=== PATIENT | male | born 2000 | race Caucasian/White ===

== ENCOUNTER 2022-10-14 16:37 | Emergency (ER) | payer OTHER, SELFPAY ==
--- NOTE | ~2022-10-14 | XR_ITS ---
EXAM: XR abdomen/kub 1V DATE: 10/14/2022 17:50 HISTORY: abd pain LEFT SIDE . COMPARISON: None available. FINDINGS: Clear lung bases. Normal bowel gas pattern. No organomegaly. 4 and 5 mm round calcificatio ns project over the left pelvis. Regional bones and soft tissues normal for age. IMPRESSION: Left pelvis calcifications may reflect phleboliths or distal ureteral stones. Reviewed, dictated and finalized at location K. ING ROOM INSPECTOR IMPRESSION: Left pelvis calcifications may reflect phleboliths or distal ureter al stones.
--- NOTE | ~2022-10-14 | CT_ITS ---
EXAMINATION: CT abdomen pelvis wo con DATE: 10/14/2022 18:20 INDICATION: left flank pain TECHNIQUE: Computed tomography (CT) of the abdomen and pelvis was performed without intravenous contr ast. Automated exposure control and iterative reconstruction technique were employed. The dose-length product was 287.46 mGy-cm. COMPARISON: X-ray abdomen, same date. FINDINGS: Lower thorax: Unremarkable Liver: Normal. Biliary/Gallbladder: Gallbladder is normal. No bile duct dilation. Pancreas: No mass or duct dilation. Spleen: Normal. Adrenals:No mass. Kidneys: No mass, stone, or hydronephrosis. GI tract: No small or large bowel dilation. Appendix surgically absent. Mesentery/Peritoneum: No ascites, mass, or free air. Retroperitoneum: No mass. Pelvis: Pelvic organs are within normal limits. Soft Tissues: Soft tissues and body wall unremarkable. Bones: No acute osseous finding. IMPRESSION: No acute abdominopelvic process detected. The calcifications noted in the prior radiograph correspond to phleboliths. Specifically, there is no evidence of nephrolithiasis or obstructive uropathy. Reviewed, dictated and finalized at location K. US SUPERVISOR IMPRESSION: No acute abdominopelvic process detected. The calcifications noted in the prior radiograph correspond to phleboliths. Specifically, there is no evidence of ne phrolithiasis or obstructive uropathy.
[2022-10-14 17:05] VITALS: BP 149/79; PULSE 86; RESP 18; TEMP 36.7; O2SAT 100
[2022-10-14 17:36] LABS: Appearance Urine Clear (Clear); Bilirubin Urine Negative (Negative); Blood Urine Negative (Negative); Color Urine Yellow (Yellow); Glucose Urine UA Negative (Negative); Ketones Urine 1+ mg/dL (Negative); Leukocyte Esterase Ur Negative LEU/UL (Negative); Nitrate Urine Negative (Negative); Protein Urine Negative (Negative); Specific Grav Ur 1.015 (1.001-1.035)
[2022-10-14 17:43] LABS: Mucus Urine Rare /lpf; RBC Urine 0-2 /hpf (0-2); WBC Urine 0-3 /hpf
[2022-10-14 17:47] LABS: Add Urine Microscopic? YES
--- NOTE | 2022-10-14 18:37 | ED.ABDPAIN ---
HPI - Abdominal Pain General Chief Complaint: Abdominal Pain Stated Complaint: left flank pain Time Seen by Provider: 10/14/22 17:19 History of Present Illness HPI narrative: 22-year-old male no medical problems presents emergency room for evaluation of sudden onset of left flank pain that radiates into his groin. Patient states he woke up this morning with the discomfort. Patient also endorses nausea. Denies urinary retention or decreased urinary flow. Denies diarrhea or constipation. Denies fevers. No history of kidney stones. Related Data Home Medications Medication Instructions Recorded Confirmed alprazolam 0.5 mg tablet (Xanax) 0.5 mg PO TID PRN anxiety 01/14/20 04/05/22 Allergies Allergy/AdvReac Type Severity Reaction Status Date / Time Penicillins Allergy Unknown rash Verified 10/14/22 17:27 Review of Systems Review of Systems: CONSTITUTIONAL: Denies fever, chills, or sweats. EYES: Denies visual changes, redness, or discharge. ENT: Denies rhinorrhea, congestion, sore throat, or otalgia. CARDIOVASCULAR: Denies chest pain, palpitations, or edema. RESPIRATORY: Denies cough or dyspnea. GASTROINTESTINAL: Reports flank pain, nausea GENITOURINARY: Denies dysuria or hematuria. SKIN: Denies rash or itching. MUSCULOSKELETAL: Denies back pain, joint pain, or myalgia. NEUROLOGIC: Denies headache, numbness, dizziness, or weakness. PSYCHIATRIC: Denies anxiety or depression. COUNT INCLUDES THE [facility] Past Medical History Medical History Anxiety Cellulitis of right earlobe Cough Current moderate episode of major depressive disorder without prior episode Cystic acne FH: HTN (hypertension) Lower respiratory infection Other fatigue Screening for STD (sexually transmitted disease) Sleep disturbances Tobacco abuse Upper respiratory tract infection Family History Family History Grandparent Family history of hypercholesterolemia Hypertension Carcinoma of colon Family history of malignant melanoma Mother Family history of hypercholesterolemia Family history of mental disorder Depression Father Hypertension Social History Social History Smoking status: Current every day smoker Second hand tobacco smoke exposure: No Alcohol intake: current Drinks per week: 3 Substance use: current Substance use type: marijuana Other substance usage details: daily Exam Narrative: GENERAL: Well-appearing, well-nourished, no physical limitations, and in no acute distress. HEAD: Normocephalic, atraumatic. EYES: Conjunctivae normal, PERRLA and EOMI. CHEST: Clear to auscultation. No respiratory distress. No wheezes rales or rhonchi. HEART: Regular rate and rhythm. No murmur heard. Normal peripheral pulses. ABDOMEN: Soft, nontender, nondistended, normal active bowel sounds. BACK: Left CVA tenderness EXTREMITIES: Normal range of motion. No edema. No clubbing or cyanosis SKIN: Warm, dry, no rash. No noted wounds NEURO: No focal deficits. Alert and oriented x3. MAEW. CN's II-XI intact bilaterally, normal gait PSYCH: Cooperative. Normal mood and affect. Course Vital Signs Vital signs: Vital Signs Temperature 36.7 C 10/14/22 17:05 Pulse Rate 86 10/14/22 17:05 Respiratory Rate 18 10/14/22 17:05 Blood Pressure 149/79 H 10/14/22 17:05 Pulse Oximetry 100 10/14/22 17:05 Temperature 36.7 C 10/14/22 17:05 Pulse Rate 86 10/14/22 17:05 Respiratory Rate 18 10/14/22 17:05 Blood Pressure 149/79 H 10/14/22 17:05 Pulse Oximetry 100 10/14/22 17:05 MDM - Abdominal Pain Lab Data Result diagrams: 10/14/22 18:37 10/14/22 18:37 Labs: Lab Results 10/14/22 10/14/22 10/14/22 Range/Units 17:28 18:37 18:37 WBC 7.4 (4.5-10.0) K/mm3 RBC 4.75 (4.6-6.20) M/mm3 Hgb 14.2 (14.0-18.0) g/dL Hct 4
[2022-10-14] MEDS: ONDANSETRON INJ 4 MG/2 ML VIAL IV PUSH (18:38)
[2022-10-14] MEDS: KETOROLAC 30 MG/ML VIAL (*BKC) IV PUSH (18:38)
[2022-10-14] MEDS: SODIUM CHLORIDE 0.9% IV 1,000 ML 999 ML IV CONT (18:38)
[2022-10-14 18:45] LABS: Basophils Percent Auto 0.3 % (0.2-1.2); Eosinophils Absolute Auto 0.1 K/mm3 (0-0.3); Eosinophils Percent Auto 1.3 % (0-4.4); Hematocrit 40.4 % (42.0-52.0); Hemoglobin 14.2 g/dL (14.0-18.0); Immature Granulocyte Absolute 0.01 K/mm3 (0.00-0.031); Immature Granulocyte Percent A 0.1 % (0-0.5); Lymphocytes Absolute Auto 2.06 K/mm3 (0.9-3.2); Lymphocytes Percent Auto 27.7 % (18.3-44.2); Mean Corpuscular HGB Conc 35.1 g/dl (32-36); Mean Corpuscular Hemoglobin 29.9 pg (26-34); Mean Corpuscular Volume 85.1 fl (80-100); Mean Platelet Volume 9.5 fl (7.4-10.4); Monocytes Percent Auto 12.9 % (2.6-8.5); Neutrophils Absolute Auto 4.3 K/mm3 (1.3-6.7); Neutrophils Percent Auto 57.7 % (45.5-73.1); Platelet Count Result 186 k/mm3 (150-375); Red Blood Count 4.75 M/mm3 (4.6-6.20); Red Cell Distribution Width 11.8 % (11.5-14.5); White Blood Count 7.4 K/mm3 (4.5-10.0)
[2022-10-14 18:55] VITALS: BP 140/82; PULSE 89; RESP 16; O2SAT 99
[2022-10-14 18:57] LABS: Alanine Aminotransferase 35 U/L (6-50); Albumin Level 4.6 g/dL (3.5-5.1); Alkaline Phosphatase 96 U/L (38-126); Anion Gap 10 mmol/L (8-16); Aspartate Amino Transferase 37 U/L (17-59); Bilirubin,Total 0.8 mg/dL (0.2-1.3); Blood Urea Nitrogen 9 mg/dL (9-20); Calcium 8.8 mg/dL (8.4-10.2); Carbon Dioxide 28 mmol/L (22-30); Chloride 104 mmol/L (98-107); Estimated CRCL calculation 136 ml/min; Estimated Glomerular Filt Rate > 60; Glucose 93 mg/dL (65-110); Potassium 3.2 mmol/L (3.4-5.0); Sodium 142 mmol/L (137-145)
== END 2022-10-14 18:55 | disposition home or self-care (01) ==
PROVIDERS: Emergency Provider Nurse Practitioner Family; PCP Family Medicine
DX: R10.32 Left lower quadrant pain (principal); F41.9 Anxiety disorder, unspecified; F17.200 Nicotine dependence, unspecified, uncomplicated; R93.5 Abnormal findings on diagnostic imaging of other abdominal regions, including retroperitoneum
CPT/HCPCS: 36415; 74018; 74176; 80053; 81001; 85025; 96361; 96374; 96375; 99284; J1885; J2405; J7030

== ENCOUNTER 2022-10-30 08:22 | Outpatient (CLI) | payer OTHER, SELFPAY ==
--- NOTE | ~2022-10-30 | CT_ITS ---
EXAMINATION: CT abdomen pelvis w con DATE: 10/30/2022 08:44 INDICATION: Left lower quadrant pain, groin pain TECHNIQUE: Computed tomography (CT) of the abdomen and pelvis was performed with 100 CC Omnipaque 350 intravenous contrast. Automated exposure control and iterative reconstruction technique were employe d. Exam dose: 724.42 mGy-cm total exam DLP. COMPARISON: 10/14/2022 CT abdomen pelvis FINDINGS: Lung bases are clear. Normal heart size. No pericardial or pleural effusion. Several very small hypoattenuating lesions of the liver are noted, likely small cysts or benign hamar bridget. The gallbladder is unremarkable. No bile duct or pancreatic duct dilatation. No pancreatic mas s lesion or calcification. Normal splenic size. Normal morphology of the adrenal glands. No renal mass lesion or urinary tract calculus or hydroureteronephrosis. Normal caliber of the abdominal aorta. No intraperitoneal or retroperitoneal or pelvic mass lesion or adenopathy or ascites. The urinary bladder, prostate gland and seminal vesicles are unremarkable. No bowel obstruction, bowel wall thickening, pneumatosis or intraperitoneal free air. Status post ethel endectomy. Small fat-containing umbilical hernia. No inguinal hernia is detected. Included skeletal structures are unremarkable. IMPRESSION: Status post appendectomy Several very small hypoattenuating lesions of the liver, likely small cysts or benign hamartomas No evidence of inguinal hernia Reviewed, dictated and finalized at Location A. Reviewed, dictated and finalized at location B. ANALYSIS WELL LOGGING CAPTAIN
== END 2022-10-30 08:23 | disposition home or self-care (01) ==
PROVIDERS: PCP Family Medicine; Visit Provider Physician Assistant Medical
DX: R10.32 Left lower quadrant pain (principal); K76.9 Liver disease, unspecified
CPT/HCPCS: 74177; Q9967

== ENCOUNTER 2022-12-03 15:09 | Outpatient (CLI) | payer OTHER, SELFPAY ==
--- NOTE | ~2022-12-03 | XR_ITS ---
EXAMINATION: XR knee LT 3V DATE: 12/03/2022 15:38 INDICATION: Left knee pain. Twisting injury. TECHNIQUE: 3 views of left knee were obtained. COMPARISON: None. FINDINGS: Bone alignment is normal. No fracture. Joint spaces are well maintained. There is a small k nee joint effusion. IMPRESSION: 1. Small left knee joint effusion. Reviewed, dictated and finalized at location A. E SALES LEADER
== END 2022-12-03 15:10 | disposition home or self-care (01) ==
PROVIDERS: PCP Family Medicine; Visit Provider Physician Assistant
DX: M25.462 Effusion, left knee (principal)
CPT/HCPCS: 73562

== ENCOUNTER → 2023-01-17 13:36 | Outpatient (CLI) | payer OTHER, SELFPAY ==
--- NOTE | ~2023-01-17 | MR_ITS ---
EXAMINATION: MR knee LT wo con DATE: 01/17/2023 14:26 INDICATION: Left knee pain TECHNIQUE: Magnetic resonance imaging (MRI) of the left knee was performed without intravenous contra st. Sequences included coronal PD-weighted FSE, coronal PD-weighted FS FSE, sagittal T2-weighted FSE , sagittal PD-weighted FS FSE and axial PD weighted fat saturated FSE. COMPARISON: Radiograph dated 12/24/2022 FINDINGS: Medial compartment: Medial meniscus is normal. Articular cartilage is normal. Lateral compartment: Lateral meniscus is normal. Articular cartilage is normal. Patellofemoral compartment: Articular cartilage is normal. Ligaments and tendons: Posterior cruciate ligament is normal. Complete tear of the anterior cruciate ligament. The medial co llateral ligament and fibular collateral ligament complex are normal. The extensor mechanism is tony l. The visualized medial and lateral hamstring tendons as well as the iliotibial band are normal. Fluid: Small left knee joint effusion. No loose osteochondral bodies identified. Small Burger's cyst. Osseous/other: Slight anterior subluxation of the tibia with respect to the femoral condyles consistent with anterio r cruciate ligament tear. Likely reactive marrow edema primarily in the distal femur which centers ar ound the footplate of the anterior cruciate ligament. Additional mild marrow edema at the posterolate ral aspect lateral tibial plateau centered along the white appears to be small feeding vessels arisin g along the anterior margin of the proximal tibiofibular articulation. No fracture or pathologic valery ow replacing process. IMPRESSION: 1. Complete tear of the anterior cruciate ligament. Normal menisci and cartilage. Reviewed, dictated and finalized at location A. ANIC INSULATOR IMPRESSION: 1. Complete tear of the anterior cruciate ligament. Normal menisci and cartilag e.
== END ==
PROVIDERS: PCP Family Medicine; Visit Provider Nurse Practitioner Family
DX: S83.512D Sprain of anterior cruciate ligament of left knee, subsequent encounter (principal); X58.XXXD Exposure to other specified factors, subsequent encounter
CPT/HCPCS: 73721

== ENCOUNTER 2023-05-23 01:09 | Day surgery (SDC) | payer OTHER, SELFPAY ==
--- NOTE | 2023-05-16 13:52 | PC.NURSE ---
Report to the Outpatient Waiting Room, entrance under the green pavilion located off [facility], at time _0600__ on date _05/23/23__. Planned Procedure Time: _0730__. Time changes happen often and if your time is changed the preop area will call you the afternoon before. - You and your visitor will be asked to self-screen and do not enter if you have any COVID symptoms. - A mask is optional within the hospital at this time. Patients may have clear liquids (water, carbonated beverages, clear teas, apple juice) until 3 hours prior to surgery with a maximum of 20 ounces. - No food from midnight until time of surgery Take the following medications with a SIP of water the morning of surgery: _Alaprazolam___ DO NOT STOP ANY OF YOUR OTHER PRESCRIPTION MEDICATIONS PRIOR TO SURGERY ?EXCEPT THE FOLLOWING Medications to discontinue per physician vitamins or supplements 3 days prior___ Date to take last dose Please no make-up, nail faroese, hairspray, perfume, deodorant, or body powder the day of surgery. No jewelry (including any body piercings) or valuables the day of surgery, leave them at home. Please take a shower or bath the night before, or the morning of, surgery with an antibacterial soap. Wear comfortable, loose fitting clothing. Children are encouraged to wear pajamas. - Jewelry must be removed prior to entering the operating room. Rings and piercings that are not removed may be cut off. - The hospital will not accept responsibility for valuables. - Please leave all valuables, including medications, at home the day of surgery. If you are going home after surgery, a licensed driver lifter of sanitation truck must drive you home. - NO public transportation without another adult if you receive anesthesia. - We recommend that an adult stay with you for 24 hours following discharge. - We also recommend that you do not drive, make important decision, drink alcoholic beverages, or take any drugs that were not prescribed by your health care provider for at least 24 hours after your discharge time. For Pediatric surgeries, we recommend two adults accompany the child home. Follow any additional instructions given to you from your surgeon. If you or anyone in your household have experienced Covid symptoms in the past week, please notify your surgeon or the nurse liaison at the phone number below for possible testing. Telephone instructions given to _patient__and asked if any additional questions and then verbalized understanding. Patient advised to call surgeon office or pre surgery nurse liaison [phone] if any additional questions.
[2023-05-16 14:00] VITALS: BMI 29.9
[2023-05-23] VITALS (7 sets, daily range): BP systolic 124–161; BP diastolic 63–97; PULSE 73–100; RESP 12–18; TEMP 36.7; O2SAT 96–100
[2023-05-23] MEDS: ACETAMINOPHEN 500 MG TABLET 1000 MG PO (06:54)
[2023-05-23] MEDS: KETOROLAC 15 MG/ML VIAL (*BKC) IV PUSH (06:57)
--- NOTE | 2023-05-23 07:04 | WPDANESEPPF ---
Anes - Initial Pre Proc Eval Procedure: Operation Date: 05/23/23 07:30 Proposed Procedures p Left Knee Anterior Cruciate Ligament Reconstruction - Anthony Perez MD Date/Time: 05/23/23 07:04 Surgeon: Anthony Perez MD Pre Op Diagnosis: left knee acl tear Patient Data Age: 22 Gender: M Height: 1.83 m Weight: 102.9 kg Last Vital Signs Temp 36.7 C 05/23/23 07:02 Pulse 90 05/23/23 07:02 Resp 16 05/23/23 07:02 BP 161/81 H 05/23/23 07:02 Pulse Ox 100 05/23/23 07:02 O2 Del Method Room Air 05/23/23 07:02 Allergies Allergy/AdvReac Type Severity Reaction Status Date / Time Penicillins Allergy Unknown rash Verified 05/23/23 06:15 Home Medications Medication Instructions Recorded Confirmed Type alprazolam 0.5 mg tablet (Xanax) 0.5 mg PO TID PRN anxiety 01/14/20 05/16/23 History amitriptyline 50 mg tablet 50 mg PO HS 05/16/23 05/16/23 History Patient hx anesthesia problems: post op nausea/vomiting Family hx anesthesia problems: none Results Review: All pre-operative results and documents have been reviewed as part of the pre-operative evaluation. [facility] Past Medical History Medical History ACL tear Anxiety Cellulitis of right earlobe Cough Current moderate episode of major depressive disorder without prior episode Cystic acne FH: HTN (hypertension) History of MRSA infection Left groin pain Left knee injury Left knee pain Lower respiratory infection Other fatigue Screening for STD (sexually transmitted disease) Sleep disturbances Tobacco abuse Upper respiratory tract infection Surgical History Surgical History History of appendectomy Family History Family History Grandparent Family history of hypercholesterolemia Hypertension Carcinoma of colon Family history of malignant melanoma Mother Family history of hypercholesterolemia Family history of mental disorder Depression Father Hypertension Other Thyroid cancer cousin Social History Social History Smoking packs per day: 0.5 Smoking cigarettes per day: 10.0 Years smoked: 4 Smoking pack-years: 2.00 Smoking status: Former smoker Tobacco type: cigarettes Second hand tobacco smoke exposure: No Alcohol intake: current Drinks per week: 2 Substance use: never Substance use type: does not use Other substance usage details: daily Last use: 04/15/22 Lack of Transportation: No Lack of Food: Never True Current Housing: I Have Housing Concerned About Future Housing: No Difficulty Paying Gas/Electric Bills: No Difficulty Paying for Meds: No Currently Unemployed: No Education: High School Diploma/GED Difficulty w/ Childcare or Family Care: No Living arrangements: with family Spiritual care concerns: No Anes - Eval Final PreProcedure Day of Procedure 05/23/23 07:04 Patient weight: overweight Heart: regular rate and rhythm Lungs: clear to auscultation Airway: Mallampati scale class II Neurological: alert and oriented Last oral intake: >/= 8 hours ASA classification: II Emergent: no Anesthetic plan: proceed Anesthesia type and monitoring: general LMA and standard monitoring Results Review: All pre-operative results and documents have been reviewed as part of the pre-operative evaluation. Informed Consent: The patient's anesthetic plan and its attendant risks and benefits were discussed with the patient/family/POA. Questions were solicited and answers provided to the satisfaction of the patient/family/POA.
--- NOTE | 2023-05-23 07:08 | WPDHPUPDATE1 ---
History and Physical Update Update Date/Time: 05/23/23 07:08 History and Physical has been reviewed, including an updated exam of the patient. There are NO changes in the patient's condition. Risks, benefits, and alternatives have been discussed and questions answered. Patient agrees to proceed with procedure.
[2023-05-23] MEDS: SCOPOLAMINE 1.5 MG PATCH TRANSDERM (07:12)
[2023-05-23] MEDS: LACTATED RINGERS 1,000 ML 30 ML IV CONT ×2 (07:12→10:49)
[2023-05-23] MEDS: ceFAZolin 2 GM/D5W 50 ML 2 GM/50 ML BAG IVPB (07:30)
[2023-05-23] MEDS: LIDO 1%/EPINEPHRINE 1:100,000 20 ML VIAL 30 ML INFILTRATE (10:24)
[2023-05-23] MEDS: LIDOCAINE HCL 1% LOCAL INJ 20 ML VIAL 10 ML INFILTRATE (10:25)
--- NOTE | 2023-05-23 10:47 | W.PM.PROC2 ---
Procedure Note - Detailed Date of Procedure 05/23/23 Pre-op Diagnosis left knee acl tear Post-op Diagnosis Same Procedure Performed Left knee arthroscopic assisted anterior cruciate ligament reconstruction. 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 MRI shows anterior cruciate ligament tear. Patient has instability with activity and pain. Has been through physical therapy. Presents now for ACL reconstruction. Discussion regarding choice of allograft versus autograft. Patient has opted for allograft replacement. Findings Complete tear of the anterior cruciate ligament from the femoral side. PCL intact. The medial / lateral compartments intact with intact menisci. Minimal degenerative changes. Patellofemoral articulation without significant degeneration. Description of Procedure Informed consent given by patient. Operative extremity marked in preoperative holding area. Patient received intravenous antibiotics. Patient brought to operating room and underwent general anesthetic by anesthesia team. Positioned supine on operating room table. Left leg placed into a posterior thigh leg rosenthal. Foot of the table dropped to 90? and right leg padded out of the field. Time-out performed confirming patient, site of surgery and plan. Left knee prepped and draped in usual sterile surgical fashion using ChloraPrep skin solution. Standard arthroscopic portals made by using a 11 blade knife for the anterior lateral portal 1st. Capsule penetrated bluntly. Camera and inflow started. The operative findings noted. Intra-articular visualization used to position the anterior medial portal using 22 gauge spinal needle. A 11 blade knife used for the skin and blunt penetration of the capsule. 4.7 millimeter arthroscopic shaver introduced and Resection of the remaining portion of the anterior cruciate ligament performed. Resection of the anterior fat pad performed for visualization. Femoral notchplasty then performed with 5.0 mm corrie and the shaver. Bleeding points coagulated with the Wand. Anterior cruciate ligament reconstruction then performed. Allograft hamstring tendon opened and prepared on table, this is a quadrupled soft tissue hamstring tendon graft. The fixation suture button applied to the femoral side. Fixation suture applied to the tibial side. Tensioning graft was then performed at a tension of 15. Femoral Tunnel was then drilled with a 10 mm inside to drill placed at the proper position on the medial wall of the lateral femoral condyle. 35 mm socket was prepared. Debris was suctioned. Suture was then passed through this into the knee joint. Tibial side was then drilled at 65? from outside in after placing the guide pin. Approximately 55 mm tibial tunnel prepared. Tibial tunnel also 10 mm diameter. Debris was suctioned. Graft was then plastic with the passing suture from the femur through the tibial hole into the joint and brought out into the femoral tunnel. Tightening sutures were used on the femoral side and tibial side to Center graft in the knee joint. With knee in full extension the internal brace which had been attached to the femoral fixation button was brought out through the tibial tunnel and fastened to the tibia with a 5.0 mm SwiveLock anchor. Knee was taken through full range of motion no impingement was noted. This also allowed the anterior cruciate ligament graft to cycle and position. Tibial side was then fastened with a 14 mm button. Final tensioning of the femoral and tibial side was then performed with the knee in approximately 35? flexion and posterior directed force on the proximal tibia. Knee was once again taken through full range of motion and no impingement was noted. Knee inspected, no loose pieces noted. 1 liter of irrigant infused and suction out. Arthroscopic cannulas removed. Skin closed with 4 nylon interrupted suture. Local anes
[2023-05-23] MEDS: fentaNYL CITRATE INJ (*CRX) 100 MCG/2 ML VIAL 25 MCG IV PUSH ×3 (10:55→11:20)
[2023-05-23] MEDS: oxyCODONE HCL (*CRX) 5 MG TAB IR PO (11:47)
== END 2023-05-23 12:10 | disposition home or self-care (01) ==
PROVIDERS: PCP Family Medicine; Visit Provider Orthopaedic Surgery
PROC: (CPT 29888; principal; 2023-05-23 07:30)
DX: S83.512A Sprain of anterior cruciate ligament of left knee, initial encounter (principal); X50.0XXA Overexertion from strenuous movement or load, initial encounter; F17.290 Nicotine dependence, other tobacco product, uncomplicated; F12.90 Cannabis use, unspecified, uncomplicated; F41.9 Anxiety disorder, unspecified
CPT/HCPCS: 29888; A9270; C1713; J0690; J1100; J1885; J2250; J2405; J2704; J3010; J7120; L1830

== ENCOUNTER 2023-09-06 12:24 | Emergency (ER) | payer OTHER, SELFPAY ==
--- NOTE | ~2023-09-06 | XR_ITS ---
EXAMINATION: [id number] INDICATION: Left lateral rib pain TECHNIQUE: A frontal view of the chest and 3 views of the left ribs were obtained. COMPARISON: None. FINDINGS: The lungs are free of acute opacities. No pleural effusion or pneumothorax. The cardiomedia stinal silhouette is normal. No displaced rib fracture is identified. IMPRESSION: 1. No acute cardiopulmonary abnormality or evidence of displaced rib fracture. Reviewed, dictated and finalized at location B.
[2023-09-06 12:33] VITALS: BP 140/86; PULSE 82; RESP 16; TEMP 36.6; O2SAT 98
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
== END 2023-09-06 13:17 | disposition home or self-care (01) ==
PROVIDERS: Emergency Provider Nurse Practitioner Family; PCP Family Medicine
DX: R07.81 Pleurodynia (principal); I10 Essential (primary) hypertension; Z79.899 Other long term (current) drug therapy; Z87.891 Personal history of nicotine dependence; W50.0XXA Accidental hit or strike by another person, initial encounter
CPT/HCPCS: 71101; 99213; G0463

== ENCOUNTER 2024-09-25 10:08 | Outpatient (CLI) | payer OTHER, SELFPAY ==
--- NOTE | ~2024-09-25 | MR_ITS ---
EXAMINATION: MR knee LT wo con DATE: 09/25/2024 10:46 INDICATION: Left knee pain. TECHNIQUE: Magnetic resonance imaging (MRI) of the left knee was performed without intravenous contra st. Sequences included axial PD-weighted FS FSE, coronal PD-weighted FSE and PD-weighted FS FSE, sagi ttal PD-weighted FSE, and sagittal T2-weighted FS FSE. COMPARISON: Left knee MRI 01/17/2023, radiographs 09/09/2024 FINDINGS: Medial compartment: There is a tear of body and posterior horn of medial meniscus with torn bucket-handle component in th e intercondylar notch. There is shallow partial-thickness cartilage loss of tibial condyle posteriorl y. The femoral cartilage is normal. Lateral compartment: The lateral meniscus is normal. The lateral compartment cartilage is normal. Patellofemoral compartment: The patellar cartilage is normal. The trochlear cartilage is normal. Ligaments and tendons: There are changes of anterior fusion ligament reconstruction. There is abnormal orientation of the gr aft, which is less steep than Blum[place]at line. There is fluid in the tibial tunnel. The posterior cru ciate ligament is normal. There is trace fluid along the medial collateral ligament. The lateral aurelio ateral ligament complex is normal. Patellar tendon is normal. Fluid: There is a small knee joint effusion. There is a moderate-sized Burger's cyst. IMPRESSION: 1. Tear of the anterior cruciate ligament graft. 2. Torn bucket-handle tear of medial meniscus. 3. Mild chondrosis of medial compartment. 4. Small knee joint effusion. 5. Moderate-sized Burger's cyst. Reviewed, dictated and finalized at location B.
== END 2024-09-25 10:09 | disposition home or self-care (01) ==
PROVIDERS: PCP Family Medicine; Visit Provider Orthopaedic Surgery
DX: S83.512D Sprain of anterior cruciate ligament of left knee, subsequent encounter (principal); X58.XXXD Exposure to other specified factors, subsequent encounter; M25.462 Effusion, left knee; M71.22 Synovial cyst of popliteal space [Baker], left knee
CPT/HCPCS: 73721

== ENCOUNTER 2024-11-02 01:58 | Day surgery (SDC) | payer BC, SELFPAY ==
[2024-10-02 14:19] VITALS: BMI 29.2
--- NOTE | 2024-10-02 14:24 | PC.NURSE ---
Report to the Outpatient Waiting Room, entrance under the green pavilion located off [facility], at time _0830_ on date _[id number]_. Planned Procedure Time: _1030_.? Time changes happen often and if your time is changed the preop area will call you the afternoon before. - You and your visitor will be asked to self-screen and do not enter if you have any COVID symptoms. Please call surgeon if you need to reschedule. - A mask is optional within the hospital at this time. Patients may have clear liquids (water, carbonated beverages, clear teas, apple juice) until 3 hours prior to surgery with a maximum of 20 ounces. - No food from midnight until time of surgery and no smoking Take only the following medications with a SIP of water on the morning of surgery: __If needed may take Alprazolam or Tylenol_ DO NOT STOP ANY OF YOUR OTHER PRESCRIPTION MEDICATIONS PRIOR TO SURGERY EXCEPT THE FOLLOWING Medications to discontinue per physician ___None____ Please no make-up, nail albanian, hairspray, perfume, deodorant, or body powder the day of surgery.? No jewelry (including any body piercings) or valuables the day of surgery, leave them at home.? Please take a shower or bath the night before, or the morning of, surgery with an antibacterial soap.? Wear comfortable, loose fitting clothing.? - Jewelry must be removed prior to entering the operating room.? Rings and piercings that are not removed may be cut off. - The hospital will not accept responsibility for valuables.? - Please leave all valuables, including medications, at home the day of surgery. If you are going home after surgery, a licensed home delivery driver must drive you home.? - NO public transportation without another adult if you receive anesthesia. - We recommend that an adult stay with you for 24 hours following discharge. - We also recommend that you do not drive, make important decision, drink alcoholic beverages, or take any drugs that were not prescribed by your health care provider for at least 24 hours after your discharge time. Follow any additional instructions given to you from your surgeon. Telephone instructions given to __El__and asked if any additional questions and then verbalized understanding. Patient advised to call surgeon office or pre surgery nurse liaison [phone] if any additional questions.
--- NOTE | 2024-10-20 12:34 | PC.NURSE ---
Spoke with El informing that surgery is now on 11-02-2024 at 730am and he needs to be here at 6am. No other changes to instructions.
--- NOTE | 2024-10-28 14:28 | PM.IMHP ---
H&P: HPI History of Present Illness Date/Time: 10/28/24 14:28 Chief Complaint: Left knee pain Narrative: 23 year old male presents for follow up of left knee ACL reconstruction, DOS: 05/23/23 (1yr, 6mo). Patient is experiencing posterior/patella pain with swelling and limited/painful ROM. Patient is currently taking Tylenol and Ibuprofen for pain, as well as using a brace and RICE. He had an MRI completed on 09/25/2024. Involved knee: left Onset: sudden Location of pain: lateral and posterior Pain scale (0-10): 5 Character: stabbing and throbbing Timing of pain: constant Exacerbated by: direct pressure, weight bearing, squatting, stairs, running, prolonged activity and walking up stairs Relieved by: Tylenol and rest Associated symptoms: Reports swelling and stiffness History of prior knee injury: Yes Prior treatment: surgery Procedure: Left Knee ACL Reconstruction Date: 05/23/23 Review of Systems Constitutional: Constitutional: Denies fever(s) Eyes: Eyes: Denies blurry vision ENT: Reports Normal hearing present Cardiovascular: Cardiovascular: Denies chest pain and Denies dyspnea Respiratory: Respiratory: Denies dyspnea and Denies wheezing Gastrointestinal: Gastrointestinal: Denies abdominal pain Genitourinary: Genitourinary: Denies urinary urgency Musculoskeletal: Musculoskeletal: Reports as per HPI and Denies numbness Integumentary/Breasts: Skin/Breast: Denies changing lesions and Denies sores Neurologic: Reports Normal hearing present, Denies behavioral changes, Denies confusion, Denies numbness and Denies convulsions Psychiatric: Psychiatric: Denies behavioral changes, Denies confusion and Denies hallucinations Endocrine: Endocrine: Denies heat intolerance Hematologic/Lymphatic: Hematologic/Lymphatic: Denies easy bleeding Allergic/Immunologic: Allergic/Immunologic: Denies wheezing PMFSH Past Medical History Medical History ACL tear Acute medial meniscus tear of left knee Anxiety Cellulitis of right earlobe Cough Current moderate episode of major depressive disorder without prior episode Cystic acne FH: HTN (hypertension) History of MRSA infection Left groin pain Left knee injury Left knee pain Lower respiratory infection Other fatigue Screening for STD (sexually transmitted disease) Sleep disturbances Tobacco abuse Upper respiratory tract infection Surgical History Surgical History History of appendectomy Family History Family History Grandparent Family history of hypercholesterolemia Hypertension Carcinoma of colon Family history of malignant melanoma Mother Family history of hypercholesterolemia Family history of mental disorder Depression Father Hypertension Other Thyroid cancer cousin Social History Social History Smoking packs per day: 0.5 Smoking cigarettes per day: 10.0 Years smoked: 5 Smoking pack-years: 2.50 Smoking status: Former smoker Tobacco type: cigarettes Second hand tobacco smoke exposure: No Smoking end date: 09/18/24 Alcohol intake: current Drinks per week: 2 Substance use: never Substance use type: does not use Other substance usage details: daily Last use: 04/15/22 Lack of Transportation: No Lack of Food: Never True Current Housing: I Have Housing Concerned About Future Housing: No Difficulty Paying Gas/Electric Bills: No Difficulty Paying for Meds: No Currently Unemployed: No Education: High School Diploma/GED Difficulty w/ Childcare or Family Care: No Living arrangements: with family Spiritual care concerns: No Meds Home Medications and Allergies Home Medications Medication Instructions Recorded Confirmed Type alprazolam 0.5 mg tablet (Xanax) 0.5 mg PO TID PRN anxiety 01/14/20 10/20/24 History amitriptyline 50 mg tablet 50 mg PO HS #90 tabs 03/26/24 10/20/24 Rx acetaminophen 500 mg tablet 1,000 mg PO Q6H PRN Pain 10/02/24 10/20/24 History Allergies Allergy/AdvReac Type Severity Reaction Status Date / Time Penicillins Allergy Unknown rash Verified 10/20/24 12:33 Exam Const: General: healthy appearing; No in distress or confusion Orientation/consciousness: oriented to person, oriented to place, oriented to time and No confusion HENMT: Head: normal to inspection, normocephalic and atraumatic Eyes: Conjunctivae: conjunctivae normal Sclera: sclerae normal Neck: Neck: supple and nontender Resp: Effort & Inspection: normal respiratory effort and no audible wheezes Cardio: Rate: regular rate Rhythm: regular rhythm Skin: General skin exam: no rashes or lesions noted Neuro: General: oriented to person, oriented to place, oriented to time and No confusion Extrem: Right upper extremity: normal to inspection Left upper extremity: normal to inspection Right lower extremity: hip/thigh Details: normal ROM; no tenderness, knee Details: normal to inspection, normal ROM, knee ligament exam normal Details: anterior drawer test normal, posterior drawer test normal, valgus stress test normal, varus stress test normal and Per?s test normal and Donnie's Test Details: negative medially and laterally; no tenderness and no swelling and foot Details: normal capillary refill, toes with normal ROM, vascular exam Details: dorsalis pedis pulse present and motor-sensory exam Details: light-touch normal; no tenderness; no edema Left lower extremity: normal to inspection, normal capillary refill, hip/thigh Details: normal ROM; no tenderness, knee Details: tenderness Location: of the patella, of the medial joint line and of the infrapatellar area, swelling Location: of the infrapatellar area (mild), abnormal ROM (active extension -10, flexion 110), knee ligament exam normal Details: anterior drawer test normal, posterior drawer test normal, valgus stress test normal, varus stress test normal and Per's test normal, Donnie's Test Details: negative laterally and positive medially and crepitus Location: at the patella (mild) and foot Details: toes with normal ROM, vascular exam Details: dorsalis pedis pulse present and normal capillary refill and motor-sensory exam light-touch normal; no tenderness Psych: Affect: normal affect Assessment and Plan Assessment and plan (1) Acute medial meniscus tear of left knee: Qualifiers: Encounter type: subsequent encounter Qualified Code(s): S83.242D - Other tear of medial meniscus, current injury, left knee, subsequent encounter Code(s): S83.242A - Other tear of medial meniscus, current injury, left knee, initial encounter Status: Acute Assessment and Plan: MRI done in the interim for the left knee. Patient reports no real change in condition. Still with pain over the anterior medial aspect of the knee. Popping and catching noted. He does not note any giving out. MRI reviewed which shows posterior horn medial meniscus tear with displacement of the portion of the tear into the intercondylar notch. Status post ACL graft placement with postsurgical changes but ACL Questionably appears intact. Reviewed with patient. Treatment options reviewed. Discussed nonoperative and operative treatment options with the patient. Risks and benefits of each as well as alternatives were reviewed. All of the patient's questions were answered. The risks of surgery reviewed including but not limited to: Neurovascular damage, wound complication, infection, blood clot, pulmonary embolus, stroke, myocardial infarction, and anesthetic risks up to and including . Continued pain and possible dysfunction were explained. Specific risks of the procedure including later recurrence of deformity. No guarantees were offered. If hardware used, discussed risk of failure/ breakage and possible need for removal. If complications occur, the patient understands the need for further treatment, possible further surgery. Patient verbalizes understanding and wishes to proceed. PLAN: Left knee arthroscopy with debridement, partial meniscectomy, synovectomy, chondroplasty, possible anterior cruciate ligament reconstruction with allograft. (2) Left knee injury: Qualifiers: Encounter type: subsequent encounter Qualified Code(s): S89.92XD - Unspecified injury of left lower leg, subsequent encounter Code(s): S89.92XA - Unspecified injury of left lower leg, initial encounter Status: Acute (3) Left knee pain: Qualifiers: Chronicity: acute Qualified Code(s): M25.562 - Pain in left knee Code(s): M25.562 - Pain in left knee Status: Acute (4) ACL tear: Qualifiers: Encounter type: subsequent encounter Laterality: left Qualified Code(s): S83.512D - Sprain of anterior cruciate ligament of left knee, subsequent encounter Code(s): S83.519A - Sprain of anterior cruciate ligament of unspecified knee, initial encounter Status: Acute Assessment and Plan: MRI shows some degeneration of the ACL graft. Good stability on exam and no evidence or giving out of the knee with activity. Discussed with patient evaluation at the time of arthroscopy for the medial meniscus. If graft is injured, retorn or insufficient will proceed with ACL reconstruction with new graft. Discussed with patient. Risks, benefits and alternatives to surgery discussed in detail. Questions answered and he would like to proceed.
[2024-11-02] VITALS (8 sets, daily range): BP systolic 94–141; BP diastolic 50–92; PULSE 73–87; RESP 10–18; TEMP 36–36.4; O2SAT 99–100
--- NOTE | 2024-11-02 06:50 | P.PNAN_ITS ---
Anes - Initial Pre Proc Eval Procedure: Operation Date: 11/02/24 07:30 Proposed Procedures p Left Knee Arthroscopy, Debride Meniscus, Synovectomy, Chondroplasty, Proceed As Indicated - Anthony Perez MD s Possible Left Anterior Cruciate Ligament Reconstruction - Anthony Perez MD Date/Time: 11/02/24 06:50 Surgeon: Anthony Perez MD Pre Op Diagnosis: left knee apin, medial meniscal tear, chondromylas Patient Data Age: 24 Gender: M Height: 1.83 m Weight: 97.7 kg Allergies Allergy/AdvReac Type Severity Reaction Status Date / Time Penicillins Allergy Unknown rash Verified 10/20/24 12:33 Home Medications Medication Instructions Recorded Confirmed Type alprazolam 0.5 mg tablet (Xanax) 0.5 mg PO TID PRN anxiety 01/14/20 10/20/24 History amitriptyline 50 mg tablet 50 mg PO HS #90 tabs 03/26/24 10/20/24 Rx acetaminophen 500 mg tablet 1,000 mg PO Q6H PRN Pain 10/02/24 10/20/24 History Patient hx anesthesia problems: none Family hx anesthesia problems: none Results Review: All pre-operative results and documents have been reviewed as part of the pre- operative evaluation. [facility] Past Medical History Medical History ACL tear Acute medial meniscus tear of left knee Anxiety Cellulitis of right earlobe Cough Current moderate episode of major depressive disorder without prior episode Cystic acne FH: HTN (hypertension) History of MRSA infection Left groin pain Left knee injury Left knee pain Lower respiratory infection Other fatigue Screening for STD (sexually transmitted disease) Sleep disturbances Tobacco abuse Upper respiratory tract infection Surgical History Surgical History History of appendectomy Family History Family History Grandparent Family history of hypercholesterolemia Hypertension Carcinoma of colon Family history of malignant melanoma Mother Family history of hypercholesterolemia Family history of mental disorder Depression Father Hypertension Other Thyroid cancer cousin Social History Social History Smoking packs per day: 0.5 Smoking cigarettes per day: 10.0 Years smoked: 5 Smoking pack-years: 2.50 Smoking status: Former smoker Tobacco type: cigarettes Second hand tobacco smoke exposure: No Smoking end date: 09/18/24 Alcohol intake: current Drinks per week: 2 Substance use: never Substance use type: does not use Other substance usage details: daily Last use: 04/15/22 Lack of Transportation: No Lack of Food: Never True Current Housing: I Have Housing Concerned About Future Housing: No Difficulty Paying Gas/Electric Bills: No Difficulty Paying for Meds: No Currently Unemployed: No Education: High School Diploma/GED Difficulty w/ Childcare or Family Care: No Living arrangements: with family Spiritual care concerns: No Anes - Eval Final PreProcedure Day of Procedure 11/02/24 06:50 Patient weight: overweight Heart: regular rate and rhythm Lungs: clear to auscultation Airway: Mallampati scale class II Neurological: alert and oriented Last oral intake: >/= 8 hours ASA classification: II Emergent: no Anesthetic plan: proceed Anesthesia type and monitoring: general LMA and standard monitoring Results Review: All pre-operative results and documents have been reviewed as part of the pre- operative evaluation. Informed Consent: The patient's anesthetic plan and its attendant risks and benefits were discussed with the patient/family/POA. Questions were solicited and answers provided to the satisfaction of the patient/family/POA.
[2024-11-02] MEDS: ACETAMINOPHEN 500 MG TABLET 1000 MG PO (06:55)
[2024-11-02] MEDS: LACTATED RINGERS 1,000 ML 30 ML IV CONT (07:00)
[2024-11-02] MEDS: KETOROLAC 15 MG/ML VIAL (*BKC) IV PUSH (07:05)
--- NOTE | 2024-11-02 07:10 | WPDHPUPDATE1 ---
History and Physical Update Update Date/Time: 11/02/24 07:10 History and Physical has been reviewed, including an updated exam of the patient. There are NO changes in the patient's condition. Risks, benefits, and alternatives have been discussed and questions answered. Patient agrees to proceed with procedure.
[2024-11-02] MEDS: ceFAZolin 2 GM/D5W 50 ML 2 GM/50 ML BAG IVPB (07:25)
[2024-11-02] MEDS: BUPivacaine HCL 0.25% PF 10 ML VIAL INFILTRATE (08:05)
[2024-11-02] MEDS: BUPIVACAINE/EPINEPHRINE 0.5% 50 ML VIAL 10 ML INFILTRATE (08:06)
--- NOTE | 2024-11-02 09:11 | P.OP_ITS ---
Procedure Note - Detailed Date of Procedure 11/02/24 Pre-op Diagnosis left knee pain, medial meniscal tear,Chondromalacia, synovitis Post-op Diagnosis Same Procedure Performed left knee arthroscopy with synovectomy, partial medial meniscectomy, chondroplasty Surgeon Anthony Perez MD Anesthesia General Indications 24-year-old who is 1.5 years status post left knee arthroscopy with ACL reconstruction. Re-injury to knee with MRI of the demonstrates medial meniscus tear. Presents for operative treatment. Findings ACL intact. Lateral meniscus and lateral compartment intact. Mild chondromalacia patella. Severe synovitis anterior knee medial and lateral compartments. Tear of the anterior horn medial meniscus with displacement to the joint and intercondylar notch. Posterior horn intact. grade 2 chondromalacia of the medial femoral condyle. Grade 2 chondromalacia patella. Description of Procedure Informed consent given by patient. Operative extremity marked in preoperative holding area. Patient received intravenous antibiotics. Patient brought to operating room and underwent general anesthetic by anesthesia team. Positioned supine on operating room table. Left leg placed into a posterior thigh leg ro[place]. Foot of the table dropped to 90? and right leg padded out of the field. Time-out performed confirming patient, site of surgery and plan. Left knee prepped and draped in usual sterile surgical fashion using ChloraPrep skin solution. Standard arthroscopic portals made by using a 11 blade knife for the anterior lateral portal 1st. Capsule penetrated bluntly. Camera and inflow started. The operative findings noted. Tear of large portion of the anterior medial meniscus which extended to the middle body with displacement of the piece into the intercondylar notch. Posterior horn was noted to be intact. ACL graft thin but intact and had good endpoint with anterior drawer testing. Intra- articular visualization used to position the anterior medial portal using 22 gauge spinal needle. A 11 blade knife used for the skin and blunt penetration of the capsule. 4.7 millimeter arthroscopic shaver introduced and partial medial meniscectomy of the loose and torn portion performed. Edge of meniscus completed with arthroscopic Wand. Arthroscopic Wand used to perform chondroplasty of the patellofemoral articulation and the medial femoral condyle. Shaver reintroduced and a synovectomy performed of the anterior fat pad and extensive synovium as well as medial and lateral plica. Bleeding points coagulated with Wand. Knee inspected, no loose pieces noted. 1 liter of irrigant infused and suction out. Arthroscopic cannulas removed. Skin closed with 4 nylon interrupted suture. Local anesthetic with 0.25% Marcaine. Sterile dressing applied. Patient awoken from anesthesia, extubated and taken to recovery room in stable condition. All sponge needle and instrument counts correct at the end of the case. Implants None Estimated Blood Loss 5 Tourniquet Time Total Tourniquet Time: 0 Drains No Packing No Pathology None sent Complications None Condition Stable Disposition PACU [facility] Billing Surgery - Charge Forward: Surgery Billing ([id number], [id number])
[2024-11-02] MEDS: fentaNYL CITRATE INJ (*CRX) 100 MCG/2 ML VIAL 25 MCG IV PUSH ×2 (09:16→09:18)
[2024-11-02] MEDS: oxyCODONE HCL (*CRX) 5 MG TAB IR PO (10:11)
== END 2024-11-02 10:50 | disposition home or self-care (01) ==
PROVIDERS: PCP Family Medicine; Visit Provider Orthopaedic Surgery
PROC: (CPT 29870; principal; 2024-11-02 07:30)
DX: S83.242A Other tear of medial meniscus, current injury, left knee, initial encounter (principal); M94.262 Chondromalacia, left knee; M65.862 Other synovitis and tenosynovitis, left lower leg; F41.9 Anxiety disorder, unspecified; F32.9 Major depressive disorder, single episode, unspecified; G47.9 Sleep disorder, unspecified; X58.XXXA Exposure to other specified factors, initial encounter; Z79.1 Long term (current) use of non-steroidal anti-inflammatories (NSAID); Z98.890 Other specified postprocedural states; Z96.652 Presence of left artificial knee joint; Z87.891 Personal history of nicotine dependence; Z80.0 Family history of malignant neoplasm of digestive organs; Z80.8 Family history of malignant neoplasm of other organs or systems
CPT/HCPCS: 29881; 29876; A9270; J0690; J1100; J1171; J1885; J2003; J2250; J2405; J2704; J3010; J7120; L1830

== ENCOUNTER 2024-11-14 14:57 | Emergency (ER) | payer BC, SELFPAY ==
--- NOTE | 2024-11-14 15:09 | ED.SKABFB ---
HPI - Skin/Abscess/Foreign Bdy General Chief complaint: Skin/Abscess/Foreign Body Stated complaint: Abscess Right Leg Time Seen by Provider: 11/14/24 15:37 Source: patient and RN notes reviewed Mode of arrival: ambulatory Limitations: dementia History of Present Illness HPI narrative: 24-year-old male presents with concern for an abscess in his groin. He reports he noticed the area was slightly tender about 3 days ago and then he developed a bump. He denies drainage from the area. He denies fever, aches COVID chillsMD complaint: other (Redness) Related Data Home Medications ?Medication ?Instructions ?Recorded ?Confirmed ?Last Taken ?Type alprazolam 0.5 mg tablet (Xanax) 0.5 mg PO TID PRN anxiety 01/14/20 11/11/24 05/15/23 20:00 History acetaminophen 500 mg tablet 1,000 mg PO Q6H PRN Pain 10/02/24 11/11/24 Unknown History Allergies Allergy/AdvReac Type Severity Reaction Status Date / Time Penicillins Allergy Unknown rash Verified 11/11/24 07:32 Review of Systems Review of Systems: CONSTITUTIONAL: Denies malaise, chills, sweats, or fever. EYES: Denies redness, or discharge. ENT: Denies rhinorrhea, congestion, swollen lips, swollen tongue CARDIOVASCULAR: Denies chest pain, palpitations, or edema. RESPIRATORY: Denies cough or dyspnea. GASTROINTESTINAL: Denies abdominal pain, nausea, vomiting SKIN: Reports redness, swelling tenderness in the groin. Denies purulent drainage, vesicles, bullae, numbness, pain beyond proportion MUSCULOSKELETAL: Denies joint pain or myalgia. NEUROLOGIC: Denies headache. All systems reviewed & are unremarkable except as noted in HPI and below PMFSH Past Medical History Medical History Acute medial meniscus tear of left knee ACL tear History of MRSA infection Left knee injury Left knee pain Left groin pain Cellulitis of right earlobe Cough Current moderate episode of major depressive disorder without prior episode Cystic acne FH: HTN (hypertension) Other fatigue Lower respiratory infection Screening for STD (sexually transmitted disease) Sleep disturbances Tobacco abuse Upper respiratory tract infection Anxiety Surgical History Surgical History History of appendectomy Family History Family History Grandparent Family history of hypercholesterolemia Hypertension Carcinoma of colon Family history of malignant melanoma Mother Family history of hypercholesterolemia Family history of mental disorder Depression Father Hypertension Other Thyroid cancer cousin Social History Social History Smoking packs per day: 0.5 Smoking cigarettes per day: 10.0 Years smoked: 5 Smoking pack-years: 2.50 Smoking status: Former smoker Tobacco type: cigarettes Second hand tobacco smoke exposure: No Smoking end date: 09/18/24 Alcohol intake: current Drinks per week: 2 Substance use: never Substance use type: does not use Other substance usage details: daily Last use: 04/15/22 Lack of Transportation: No Lack of Food: Never True Current Housing: I Have Housing Concerned About Future Housing: No Difficulty Paying Gas/Electric Bills: No Difficulty Paying for Meds: No Currently Unemployed: No Education: High School Diploma/GED Difficulty w/ Childcare or Family Care: No Living arrangements: with family Spiritual care concerns: No Comments At time of signature, agree with nursing past medical, surgical, social and family history. There is no relevant family history pertinent to the presenting complaint Exam Narrative: GENERAL: Well-appearing, well-nourished, and in no acute distress. HEAD: Normocephalic, atraumatic. EYES: PERRLA, conjunctivae clear ENT: Mucous membranes moist. NECK: Supple. No lymphadenopathy CHEST: Clear to auscultation. No respiratory distress. HEART: Regular rate and rhythm. SKIN: Warm, dry. 1 cm diameter raised area of Erythema, induration, tenderness, warmth with sharp margins, surrounded by approximately 3 cm of erythema noted in the right groin. No vesicles, bullae, necrosis, ecchymosis, crepitus noted. NEURO: Alert and oriented x3. PSYCH: Normal mood and affect Course Course Emergency Course: Patient is aware of diagnosis, understands and agrees to treatment plan. Anticipatory guidance given. Patient agrees to follow-up as directed and is aware of reasons to seek care at the emergency department. Portions of this record may have been created with voice recognition software Level of Care: Express Care Visit Vital Signs Vital signs: Reviewed. MDM - Skin/Abscess/Foreign Bdy MDM Narrative Medical decision making narrative: I evaluated this in the [facility] care. History is obtained from patient who is an independent historian and physical exam was performed.? Available medical records were reviewed. ? Exam findings and relevant testing show no acute concerns or changes; patient is non-toxic appearing and is in no distress. No risk factors or findings concerning for epidural abscess, diskitis, vertebral osteomyelitis, cord compression, cauda equina, vertebral fracture or bone malignancy, AAA, or pyelonephritis. Patient instructed to consider further imaging and workup through their primary care physician as an outpatient if symptoms persist. Does not appear at this time to be erythema multiforme, bullous, SJS, TEN; no evidence at this time to suggest RMSF, NSTI, endocarditis or Lyme disease; patient looks well, nontoxic and is tolerating oral intake; no neurologic signs or symptoms; no headache, photophobia or neck pain; afebrile.? Patient does not have history of of penetrating trauma, laceration, blunt trauma, recent surgery, immunosuppression, malignancy, obesity, alcoholism, corticosteroid use.? Discussed the importance of follow-up, patient agrees; question, cellulitis versus necrotizing soft tissue infection versus abscess.?? Patient is appropriate for outpatient treatment and follow-up. Critical Care Time Critical Care Time Critical Care Time: No Discharge Plan Discharge Clinical Impression: Abscess Patient Disposition: Home, Self-Care Condition: Stable Instructions: Antibiotic Form, Abscess (ED) Additional Instructions: Please follow up with your Primary Care Doctor within 48-72 hours - call for an appointment. Rest and elevate affected area; apply moist heat 3-4 times daily for 10-15 minutes. Take Motrin 600mg every 8 hours with food for pain. Please take Antibiotics as directed. If you experience any worsening redness, swelling, streaking (red lines), fever or chills please go to the ER Patient Language: Vietnamese Prescriptions: New sulfamethoxazole-trimethoprim 800-160 mg tablet 1 tablet PO Q12H 7 Days Qty: 14 0RF No Action amitriptyline 50 mg tablet 50 mg PO HS Qty: 90 0RF alprazolam [Xanax] 0.5 mg tablet 0.5 mg PO TID PRN (Reason: anxiety) acetaminophen 500 mg Tablet 1,000 mg PO Q6H PRN (Reason: Pain) hydrocodone-acetaminophen 7.5-325 mg tablet 1 tablet PO Q6H PRN (Reason: pain) Qty: 30 0RF sennosides-docusate sodium [Senna with Docusate Sodium] 8.6-50 mg tablet 1 tab-cap PO BID PRN (Reason: constipation) Qty: 20 1RF Follow-up/Referrals: Bryanna Lin MD [Primary Care Provider] - Time of Disposition: 15:43
[2024-11-14 15:17] VITALS: BP 139/71; PULSE 80; RESP 16; TEMP 36.8; O2SAT 100
== END 2024-11-14 15:43 | disposition home or self-care (01) ==
PROVIDERS: Emergency Provider Nurse Practitioner; PCP Family Medicine
DX: L02.214 Cutaneous abscess of groin (principal); I10 Essential (primary) hypertension; Z87.891 Personal history of nicotine dependence
CPT/HCPCS: 99213; G0463